=== PATIENT | female | born 1990 | race Caucasian/White ===

== ENCOUNTER 2016-12-23 00:57 | Emergency (ER) | payer OTHER ==
[~2016-12-23] VITALS: Ht 175.3 cm; Wt 123.7 kg
[2016-12-23 01:40] LABS: HEMATOCRIT 35.6 % (36.0-46.0); MCH 32.6 PG (29.0-34.0); MCHC 35.7 G/DL (30.0-36.0); MCV 91.5 FL (83-99); MEAN PLAT.VOLUME 8.6 uM^3 (9.5-12.4); PLATELET COUNT 351 K/uL (156-360); RBC DIS.WIDTH-CV 12.1 % (11.8-14.6); RBC DIS.WIDTH-SD 39.1 % (39-53); RED BLOOD COUNT 3.89 M/uL (3.80-5.20); WHITE BLOOD COUNT 10.4 K/uL (4.1-10.2)
[2016-12-23 01:55] LABS: CHLORIDE 107 mEq/L (99-109); POTASSIUM 3.9 mEq/L (3.7-5.4); SODIUM 140 mEq/L (136-147)
[2016-12-23 01:57] LABS: GLUCOSE 127 mg/dL (70-99)
[2016-12-23 01:58] LABS: ANION GAP 8 MEQ/L (2-14)
[2016-12-23 01:59] LABS: TOTAL BILIRUBIN 0.2 mg/dL (0.0-1.0)
[2016-12-23 02:01] LABS: ALKALINE PHOSPHATASE 69 IU/L (3-129); GFR ESTIMATE (CALCULATED) > 59 mL/min/
[2016-12-23 02:02] LABS: UREA NITROGEN (BUN) 10 mg/dL (9-23)
[2016-12-23 02:04] LABS: LIPASE 19 U/L (1.0-51.0)
[2016-12-23 02:10] LABS: QUANTITATIVE HCG < 4.0 MIU/ML
[2016-12-23 02:42] LABS: ADD MIUA? YES; BILIRUBIN NEGATIVE; BLOOD SMALL; COLOR YELLOW ((YELLOW)); GLUCOSE (STRIP) NEGATIVE; KETONES 5; LEUKOCYTES NEGATIVE; NITRITE NEGATIVE; PROTEIN (STRIP) 30; SPECIFIC GRAVITY 1.024 (1.000-1.030); UROBILINOGEN 0.2 MG/DL (0.2-1.0)
[2016-12-23 02:49] LABS: BACTERIA NONE SEEN /HPF; BUDDING YEAST RARE; EPITHELIAL CELLS 4+ /HPF; MUCUS NONE SEEN /LPF; RED BLOOD CELLS 0-5 /HPF (0-5); UCUL ADDED? NO; UNCLASSIFIED CASTS 0-5 /LPF; WHITE BLOOD CELLS 0-5 /HPF (0-5)
[2016-12-23] MEDS ORDERED: ZOFRAN ODT4 MG PO (03:05)
[2016-12-23] MEDS ORDERED: OMEPRAZOLE40 M1 PO (03:05)
[2016-12-23] MEDS ORDERED: CARAFATE1 GM PO (03:05)
[2016-12-23 03:15] VITALS: BP 134/90
== END 2016-12-23 03:15 | disposition home or self-care (01) ==
LOC: EME 00:57 → EXP 00:57
PROVIDERS: Physician Assistant
DX: R10.9 Unspecified abdominal pain (principal)
CPT/HCPCS: 74176; 80053; 81003; 83690; 84702; 85027; 99281; 99284; J3010